=== PATIENT | male | born 1940 | race Caucasian/White ===

== ENCOUNTER 2019-06-15 10:33 | Day surgery (SDC) | payer OTHER ==
[2019-06-14 11:40] VITALS: BMI 38.6
[~2019-06-15 10:33] MED LIST: ACETAMINOPHEN 325 MG TABLET (FP) PO PRN
[2019-06-15] MEDS ORDERED: OFLOXACIN 0.3% OPHTHALMIC SOLUTION 5 ML BOTTLE ONE (10:56)
[2019-06-15] MEDS ORDERED: TROPICAMIDE 1% OPHTH SOLN 15 ML BOTTLE ONE (10:56)
[2019-06-15] MEDS ORDERED: CYCLOPENTOLATE HCL 1% OPHTH SOLN 2 ML BOTTLE ONE (10:56)
[2019-06-15] MEDS ORDERED: PHENYLEPHRINE 2.5% OPHTH SOLN 15 ML BOTTLE ONE (10:56)
[2019-06-15] MEDS ORDERED: KETOROLAC TROMETHAMINE 0.5% EYE DROP 1 DROP DROPS ONE (10:56)
[2019-06-15] MEDS: KETOROLAC TROMETHAMINE 0.5% EYE DROP 1 DROP DROPS OP SCH ×2 (11:04→11:17)
[2019-06-15] MEDS: CYCLOPENTOLATE HCL 1% OPHTH SOLN 2 ML BOTTLE OP SCH ×2 (11:04→11:17)
[2019-06-15] MEDS: TROPICAMIDE 1% OPHTH SOLN 15 ML BOTTLE OP SCH ×2 (11:05→11:16)
[2019-06-15] MEDS: PHENYLEPHRINE 2.5% OPHTH SOLN 15 ML BOTTLE OP SCH ×2 (11:05→11:17)
[2019-06-15] MEDS: OFLOXACIN 0.3% OPHTHALMIC SOLUTION 5 ML BOTTLE OP SCH ×2 (11:05→11:18)
[2019-06-15] MEDS ORDERED: MIDAZOLAM HCL 2 MG/2 ML SINGLE DOSE VIAL ONE (11:56)
[2019-06-15] MEDS ORDERED: BUPIVACAINE HCL/PF 0.75% 10 ML VIAL NR ONE (12:04)
[2019-06-15] MEDS ORDERED: LIDOCAINE HCL 2% (50ML VIAL) NR ONE (12:04)
[2019-06-15] MEDS ORDERED: POVIDONE-IODINE 5% OPHTHALMIC PREP 30 ML SOLUTION OD ONE (12:06)
[2019-06-15] MEDS ORDERED: PHENYLEPHRINE/KETOROLAC 4 ML VIAL IO ONE (12:11)
[2019-06-15] MEDS ORDERED: CHONDROITIN SU A/HYALUR SOD 1 KIT IO ONE (12:11)
[2019-06-15] MEDS ORDERED: LIDOCAINE HCL 1% PRESERVATIVE FREE - 30ML VIAL IJ ONE (12:11)
[2019-06-15] MEDS ORDERED: BSS (NA/CA/MG/K) BALANCED SALT SOLUTION OPHTH SOLN 15 ML BOTTLE OD ONE (12:11)
[2019-06-15 13:56] VITALS: BP 120/70; PULSE 72; TEMP 97.8
--- NOTE | 2019-06-15 17:29 | OP ---
DATE OF OPERATION: 06/15/2019 PREOPERATIVE DIAGNOSIS: Cataract, right eye. POSTOPERATIVE DIAGNOSIS: Cataract, right eye. PROCEDURE: Phacoemulsification of right cataract with posterior chamber intraocular lens implantation. Lens used SN60WF,12.0 diopter power, serial no. [id number]. SURGEON: Anais Eduardo M.D. ANESTHESIA: Peribulbar/modified Van Lint/MAC. COMPLICATIONS: None. PROCEDURE: The patient was brought to the operating room and correctly identified along with the operative site as well as the correct intraocular lens davies. He was then given a peribulbar block with 5 mL of a 1:1 mixture of 2% lidocaine and 0.75% bupivacaine. Then, 3 mL of the same mixture were given as a modified Van Lint eyelid block. The eye was then prepped and draped in the usual sterile fashion, including 5% Betadine solution in the conjunctival sac and an eyelid drape. An eyelid speculum was then placed into the right eye. A paracentesis port was created and 0.5 mL of 1% preservative-free lidocaine was given intracamerally. Viscoelastic was then injected to inflate the anterior chamber and a temporal clear corneal wound was created. A continuous circular capsulorrhexis was made. The nucleus was then hydro- dissected with BSS and removed with phacoemulsification using a combination of the kxuvsc-hre-qyizeji approach as well as horizontal chopping. The nucleus was noted to be dense. The majority of the quadrant removal was performed in the iris plane without complication. The cortical material was irrigated and aspirated from the eye. Viscoelastic was injected to inflate the capsular bag. The lens was injected into the capsular bag. The viscoelastic was then irrigated and aspirated from the eye. All wounds were stromal hydrated with BSS. The temporal clear corneal wound incision had some slight slight leakage, so a single 10-1 nylon suture was placed in it. Once again, the anterior chamber was reformed with BSS and all wounds tested again. This time, there was no leakage noted. Topical vancomycin was given. The eye was patched and shielded. The patient was discharged from the operating room in stable condition. ANAIS EDUARDO M.D. [id number] [facility]
== END 2019-06-15 13:45 | disposition home or self-care (01) ==
LOC: JASU-SURG 10:33
PROVIDERS: ATTEND Ophthalmology
PROC: 08RJ3JZ Replacement of Right Lens with Synthetic Substitute, Percutaneous Approach (ICD-10-PCS; principal; 2019-06-15 12:00)
DX: H26.9 Unspecified cataract (principal)
CPT/HCPCS: 82962; C9447

== ENCOUNTER 2019-06-29 11:50 | Day surgery (SDC) | payer OTHER ==
[2019-06-27 15:31] VITALS: BMI 38.6
[2019-06-29] MEDS: TROPICAMIDE 1% OPHTH SOLN 15 ML BOTTLE OP SCH ×3 (11:30→11:50)
[2019-06-29] MEDS: PHENYLEPHRINE 2.5% OPHTH SOLN 15 ML BOTTLE OP SCH ×3 (11:30→11:50)
[2019-06-29] MEDS: KETOROLAC TROMETHAMINE 0.5% EYE DROP 1 DROP DROPS OP SCH ×3 (11:30→11:50)
[2019-06-29] MEDS: CYCLOPENTOLATE HCL 1% OPHTH SOLN 2 ML BOTTLE OP SCH ×3 (11:30→11:50)
[2019-06-29] MEDS: OFLOXACIN 0.3% OPHTHALMIC SOLUTION 5 ML BOTTLE OP SCH ×3 (11:30→11:50)
[~2019-06-29 11:50] MED LIST changes: +BSS (NA/CA/MG/K) BALANCED SALT SOLUTION OPHTH SOLN 15 ML BOTTLE OS ONE; +BUPIVACAINE HCL/PF 0.75% 10 ML VIAL NR ONE; +CHONDROITIN SU A/HYALUR SOD 1 KIT IO ONE; +CYCLOPENTOLATE HCL 1% OPHTH SOLN 2 ML BOTTLE ONE; +EPINEPHrine/PF 1 MG/1 ML (1:1,000) AMPULE SQ ONE; +KETOROLAC TROMETHAMINE 0.5% EYE DROP 1 DROP DROPS ONE; +LIDOCAINE HCL 1% PRESERVATIVE FREE - 30ML VIAL IO ONE; +LIDOCAINE HCL/PF 2% SDV 5ML VIAL INF ONE; +OFLOXACIN 0.3% OPHTHALMIC SOLUTION 5 ML BOTTLE ONE; +PHENYLEPHRINE 2.5% OPHTH SOLN 15 ML BOTTLE ONE; +POVIDONE-IODINE 5% OPHTHALMIC PREP 30 ML SOLUTION OS ONE; +TROPICAMIDE 1% OPHTH SOLN 15 ML BOTTLE ONE; +TRYPAN BLUE 0.5 ML DISP.SYRIN IO ONE
[2019-06-29] MEDS ORDERED: BUPIVACAINE HCL/PF 0.75% 10 ML VIAL NR ONE (12:22)
[2019-06-29] MEDS ORDERED: LIDOCAINE HCL/PF 2% SDV 5ML VIAL INF ONE (12:22)
[2019-06-29] MEDS ORDERED: POVIDONE-IODINE 5% OPHTHALMIC PREP 30 ML SOLUTION OS ONE (12:23)
[2019-06-29] MEDS ORDERED: MIDAZOLAM HCL 2 MG/2 ML SINGLE DOSE VIAL ONE (12:25)
[2019-06-29] MEDS ORDERED: BSS (NA/CA/MG/K) BALANCED SALT SOLUTION OPHTH SOLN 15 ML BOTTLE OS ONE (12:30)
[2019-06-29] MEDS ORDERED: LIDOCAINE HCL 1% PRESERVATIVE FREE - 30ML VIAL IO ONE (12:30)
[2019-06-29] MEDS ORDERED: CHONDROITIN SU A/HYALUR SOD 1 KIT IO ONE (12:30)
[2019-06-29] MEDS ORDERED: PHENYLEPHRINE/KETOROLAC 4 ML VIAL IO ONE (12:37)
[2019-06-29 13:36] VITALS: TEMP 97.8
[2019-06-29 18:08] VITALS: BP 120/68; PULSE 68
--- NOTE | 2019-06-29 22:54 | SPEC ---
DATE OF OPERATION: 06/29/2019 OPERATION: Phacoemulsification of left cataract, posterior chamber intraocular lens implantation, lens used SN60WF, 13.0 Diopter power, Serial No. [id number]. PREOPERATIVE DIAGNOSIS: Cataract, left eye. POSTOPERATIVE DIAGNOSIS: Cataract, left eye. SURGEON: Anais Eduardo M.D. ANESTHESIA: Peribulbar/modified Van Lint/ MAC. COMPLICATIONS: None. PROCEDURE: The patient was brought to the operating room and correctly identified along with the operative site as well as correct intraocular lens davies. The patient was then prepped and draped in the usual sterile fashion including 5% Betadine solution in the conjunctival sac and an eyelid drape. An eyelid speculum was then placed into the operative eye. The eye was inspected and a poor red reflex was noted. A paracentesis port was created and .5 mL of intracameral preservative-free Lidocaine 1% was given. Beneath an air bubble, the capsule was then stained with Trypan blue. The Trypan blue was then irrigated from the eye with balanced salt solution (BBS). Viscoelastic was injected to inflate the anterior chamber. A temporal clear corneal would was created. A continuous circular capsulorrhexis was performed. The nucleus was then hydro-dissected and hydro-delineated was BSS and removed with phacoemulsification via pzraky-hcy-mokxcqt approach. The remaining cortical material was irrigated and aspirated from the eye. Viscoelastic was injected in the anterior chamber to inflate the capsular bag. The intraocular lens was then injected into the bag. The Viscoelastic was irrigated and aspirated from the eye. All wounds were tested and found to be watertight. No suture was placed. The intraocular lens was noted to be well centered and covered by the anterior capsular border. Topical Vancomycin was given. The eye was patched and shielded. The patient was discharged from the operating room in stable condition. ANAIS EDUARDO M.D. [id number]
== END 2019-06-29 14:30 | disposition home or self-care (01) ==
LOC: JASU-SURG 11:50
PROVIDERS: ATTEND Ophthalmology
PROC: 08RK3JZ Replacement of Left Lens with Synthetic Substitute, Percutaneous Approach (ICD-10-PCS; principal; 2019-06-29 12:00)
DX: H26.9 Unspecified cataract (principal); H57.89 Other specified disorders of eye and adnexa; I10 Essential (primary) hypertension; E11.9 Type 2 diabetes mellitus without complications
CPT/HCPCS: 82962; C9447